=== PATIENT | female | born 2000 | race Hispanic/Latino ===

== ENCOUNTER 2020-08-28 06:17 | Inpatient (IN) | payer MEDICAID ==
[~2020-08-28] VITALS: Ht 175.3 cm; Wt 123.4 kg
[2020-08-28] MEDS ORDERED: NALOXONE HCL 0.4 MG/1 ML ML IV PRN (06:45)
[2020-08-28] MEDS ORDERED: PROMETHAZINE HCL 25 MG/ML 1ML AMPULE IM PRN (06:45)
[2020-08-28] MEDS ORDERED: ROPIVACAINE 0.2% 100ML VIAL 100 ML EP PRN (06:45)
[2020-08-28] MEDS ORDERED: LACTATED RINGERS 500 ML 500 ML IV PRN (06:45)
[2020-08-28] MEDS ORDERED: MEPERIDINE-PF 50 MG/ML SYG IVP PRN (06:45)
[2020-08-28] MEDS ORDERED: EPHEDRINE SULFATE 50 MG/ML AMPULE IVP PRN (06:45)
[2020-08-28] MEDS ORDERED: OXYTOCIN-LR 20 UNITS/1000 ML 1,000 ML IV SCH ×3 (06:45→16:45)
[2020-08-28 07:09] LABS: HEMATOCRIT 38.8 % (36-48); MEAN CORPUSCULAR HEMOGLOBIN 29.7 pg (27.0-33.0); MEAN CORPUSCULAR VOLUME 87.2 fL (79-99); RED BLOOD CELL COUNT(AUTO) 4.45 MIL/uL (4.00-5.50); RED CELL DISTRIBUTION WIDTH 13.1 % (11.0-15.5); WHITE BLOOD COUNT (AUTO) 10.6 K/uL (4.8-10.8)
[2020-08-28 07:11] LABS: BILIRUBIN,URINE Negative (NEGATIVE); COLOR,URINE Yellow (YELLOW); GLUCOSE, URINE (UA) Negative (NEGATIVE); KETONES,URINE Negative (NEGATIVE); LEUKOCYTE ESTERASE ,URINE Moderate (NEGATIVE); NITRATE,URINE Negative (NEGATIVE); OCCULT BLOOD,URINE Negative (NEGATIVE); PROTEIN,URINE Negative (NEGATIVE)
[2020-08-28] MEDS: LACTATED RINGERS 1000ML 1,000 ML IV PRN ×2 (07:15→10:45)
[2020-08-28 07:17] LABS: APPEARANCE,URINE SLIGHTLY CLOUDY (CLEAR)
[2020-08-28 07:19] LABS: AMPHET/METH SCREEN,URINE NEGATIVE (NEGATIVE); BARBITURATE SCREEN, URINE NEGATIVE (NEGATIVE); BENZODIAZEPINES SCREEN,URINE NEGATIVE (NEGATIVE); CANNABINOID SCREEN,URINE NEGATIVE (NEGATIVE); COCAINE SCREEN,URINE NEGATIVE (NEGATIVE); OPIATE SCREEN,URINE NEGATIVE (NEGATIVE); PHENCYCLIDINE SCREEN,URINE NEGATIVE (NEGATIVE)
[2020-08-28 07:28] LABS: BACTERIA,URINE Few /HPF (None Seen); RBC,URINE None Seen /HPF (0-1); YEAST,URINE BUDDING Few /HPF (None Seen)
[2020-08-28 07:29] LABS: MUCUS,URINE Moderate LPF (None Seen)
[2020-08-28] MEDS ORDERED: OXYTOCIN-LR 20 UNITS/1000 ML 1,000 ML IV ONE (10:26)
[2020-08-28] MEDS ORDERED: FENTANYL CITRATE PF 50 MCG/1 ML 2ML VIAL ONE (10:56)
[2020-08-28] MEDS ORDERED: MEASLES/MUMPS/RUBELLA VACCINE, LIVE 0.5 ML/VIAL SQ PRN (16:45)
[2020-08-28] MEDS ORDERED: LANOLIN 30GM OINTMENT TP PRN (16:45)
[2020-08-28] MEDS ORDERED: BENZOCAINE/LANOLIN/ALOE VERA 60 ML AEROSOL TP PRN (16:45)
[2020-08-28] MEDS ORDERED: WITCH HAZEL 1 PAD TP PRN (16:45)
[2020-08-28] MEDS ORDERED: ACETAMINOPHEN 325 MG TAB PO PRN (16:45)
[2020-08-28] MEDS ORDERED: DIPH,PERTUSS(ACELL),TET VAC/PF 0.5 ML VIAL IM PRN (16:45)
[2020-08-28] MEDS ORDERED: ACETAMINOPHEN WITH CODEINE 1 TAB TAB PO PRN (16:45)
[2020-08-28 18:11] VITALS: BP 138/59
[2020-08-28] MEDS: IBUPROFEN 600 MG TABLET PO PRN (18:29)
[2020-08-28 19:23] VITALS: BP 101/56
[2020-08-28] MEDS: DOCUSATE SODIUM 100 MG CAP PO SCH (21:39)
[2020-08-29] MEDS ORDERED: PREN-154 PO
[2020-08-29 00:55] VITALS: BP 113/58
[2020-08-29 03:30] VITALS: BP 115/52
[2020-08-29 05:11] LABS: HEPATITIS Bs ANTIGEN SCREEN P Negative (Negative)
[2020-08-29 07:46] VITALS: BP 108/79
[2020-08-29] MEDS: DOCUSATE SODIUM 100 MG CAP PO SCH (09:33)
[2020-08-29] MEDS: IBUPROFEN 600 MG TABLET PO PRN (09:34)
[2020-08-29 16:27] VITALS: BP 110/54
== END 2020-08-29 17:45 | disposition home or self-care (01) | DRG 560 ==
LOC: LDH 06:17 → WSH 18:05
PROVIDERS: ADMIT Specialist; ATTEND Specialist
PROC: 10E0XZZ Delivery of Products of Conception, External Approach (ICD-10-PCS; principal; 2020-08-28)
PROC: 0W8NXZZ Division of Female Perineum, External Approach (ICD-10-PCS; 2020-08-28)
PROC: 00HU33Z Insertion of Infusion Device into Spinal Canal, Percutaneous Approach (ICD-10-PCS; 2020-08-28)
PROC: 3E0R3BZ Introduction of Anesthetic Agent into Spinal Canal, Percutaneous Approach (ICD-10-PCS; 2020-08-28)
PROC: 0UQMXZZ Repair Vulva, External Approach (ICD-10-PCS; 2020-08-28)
PROC: 3E0234Z Introduction of Serum, Toxoid and Vaccine into Muscle, Percutaneous Approach (ICD-10-PCS; 2020-08-29)
DX: O71.7 Obstetric hematoma of pelvis (principal); Z3A.39 39 weeks gestation of pregnancy; Z37.0 Single live birth; Z23 Encounter for immunization
CPT/HCPCS: 36415; 80305; 81001; 85027; 86592; 86850; 86900; 86901; 87088; 87340; 90715; A4314; G0378; J2590; J3010